=== PATIENT | female | born 1985 | race Caucasian/White ===

== ENCOUNTER 2023-11-13 08:19 | Outpatient (AMB) | payer OTHER, SELFPAY ==
--- NOTE | 2023-11-13 08:20 | MHC.OFFWIV ---
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 While every effort has been made to ensure accuracy, tribal delegate errors may have been included. The patient is a 37 year old female who presents to the clinic today with right foot pain and inability to tolerate weight bearing. She reports pain along the dorsal surface laterally over the 4th and 5th metatarsal with swelling after a fall down outside stairs yesterday. She does not pain anywhere other than that foot. She notes that it hurts primarily on the top of the foot at rest, and also the bottom of the foot but pressure on her foot. She notes that she is limping when she does walk. [facility] Social History (System 01/10/23 @ 13:49 by Marianna Shi) Patient Tobacco Use Status: Never used Tobacco Review of Systems Const All systems reviewed & are unremarkable except as noted in HPI and below Physical Exam Vital Signs: Last Vital Signs Pulse 93 11/13/23 08:21 BP 110/72 11/13/23 08:21 Pulse Ox 98 11/13/23 08:21 Oxygen Delivery Method Room Air 11/13/23 08:21 BMI result Body Mass Index 34.7 Const General: cooperative, healthy appearing, comfortable, no acute distress and alert Orientation/consciousness: patient oriented x3 Limitations: no limitations Skin General skin exam: no rashes or lesions noted, elasticity normal and turgor normal Neuro General: patient oriented x3 Extrem Other: Right foot dorsal surface edema at 4th and 5th metatarsal, tender to palpation. Ankle full flexion and extension and lateral rotation. Moderate ecchymosis present at area of tenderness. General: Yes capillary refill normal and Yes normal exam except as noted Psych Appearance: grossly normal Mental Status: mental status grossly normal Speech and movement: Normal speech and movement present Affect: normal affect Assessment & Plan Assessment & Plan (1) Foot fracture, right: Code(s): S92.901A - Unspecified fracture of right foot, initial encounter for closed fracture Qualifiers: Encounter type: initial encounter Fracture type: closed Qualified Code(s): S92.901A - Unspecified fracture of right foot, initial encounter for closed fracture Plan: X-ray reviewed revealing likely a 4th and 5th metatarsal fracture. Patient placed in boot. Advised to wear until evaluated by ortho. Unfortunately she is not a patient of [facility], so we were unable to place a referral. She is going to try the [facility] walk-[facility], or contact her primary care for referral. Advised ice, rest, compression, elevation until evaluated by orthopedics. Plan See above for full details and plan. Orders: Orders XR foot RT 2V Today M79.671 - Pain in right foot Coding Level of Care Code New Pt Level 4 (00562) Diagnoses Closed fracture of right foot, initial encounter S92.901A Encounter type: initial encounter Fracture type: closed
[2023-11-13 08:21] VITALS: BP 110/72; PULSE 93; O2SAT 98; BMI 34.7
== END 2023-11-13 09:27 | disposition home or self-care (01) ==
PROVIDERS: Visit Provider Registered Nurse
DX: S92.901A Unspecified fracture of right foot, initial encounter for closed fracture (principal)
CPT/HCPCS: 99204

== ENCOUNTER 2023-11-13 08:36 | Outpatient (REF) | payer OTHER, SELFPAY ==
--- NOTE | ~2023-11-13 | XR_ITS ---
EXAMINATION: XR FOOT, RIGHT CLINICAL INFORMATION: Right foot pain. COMPARISON: None available. TECHNIQUE: AP, lateral, and oblique views of the right foot. FINDINGS: Alignment is anatomic. Joint spaces are maintained. No displaced fracture or dislocation. Posterior and plantar calcaneal spurs. XR/XR foot RT 2V IMPRESSION: No acute abnormality.
== END 2023-11-13 08:37 | disposition home or self-care (01) ==
LOC: HO.HMGCX 08:36
PROVIDERS: Visit Provider Registered Nurse
DX: M79.671 Pain in right foot (principal)
CPT/HCPCS: 73620